=== PATIENT | female | born 1995 | race Caucasian/White ===

== ENCOUNTER 2018-04-07 20:07 | Inpatient (IN) | payer BC ==
[2018-04-07] MEDS: LACTATED RINGER'S 1,000 ML IV (21:28)
[2018-04-07] MEDS ORDERED: MISOPROSTOL 200 MCG TAB PR (21:30)
[2018-04-07] MEDS ORDERED: OXYTOCIN 30 UNITS/LR 500 ML IV ×3 (21:30→23:00)
[2018-04-07] MEDS ORDERED: IBUPROFEN 600 MG TAB PO (21:30)
[2018-04-07] MEDS ORDERED: LIDOCAINE 1% (MPF) 30 ML INJ INJ (21:30)
[2018-04-07] MEDS ORDERED: CARBOPROST 250 MCG INJ IM (21:30)
[2018-04-07] MEDS ORDERED: BUTORPHANOL 2 MG INJ IV (21:30)
[2018-04-07 22:14] LABS: ADD MAN DIFF? NO
[2018-04-07 22:16] LABS: WHITE BLOOD COUNT 7.6 10^3/ul (4.8-10.8)
[2018-04-07 22:16] LABS: BASOPHILS % 0.3 % (0.0-2.0); EOSINOPHILS # 0.3 10^3/ul (0.0-0.5); EOSINOPHILS % 4.1 % (0.0-7.0); HEMATOCRIT 36.6 % (37.0-47.0); HEMOGLOBIN 12.1 g/dl (12.0-16.0); LYMPHOCYTES % 26.3 % (15.0-51.0); MEAN CORPUSCULAR HEMOGLOBIN 28.9 pg (29.0-33.0); MEAN CORPUSCULAR HGB CONC 33.1 g/dl (32.0-37.0); MEAN CORPUSCULAR VOLUME 87.6 fl (82.0-101.0); MEAN PLATELET VOLUME 9.3 fl (7.4-10.4); MONOCYTE # 0.6 10^3/ul (0.3-0.9); MONOCYTES % 7.3 % (0.0-11.0); NEUTROPHIL # 4.7 10^3/ul (1.6-7.5); NEUTROPHILS % 61.6 % (39.0-77.0); PLATELET COUNT 275 10^3/UL (140-415); RED BLOOD COUNT 4.18 10^6/ul (4.20-5.40)
[2018-04-07 22:35] LABS: PARTIAL THROMBOPLASTIN TIME 26.3 Sec (23.0-35.0)
[2018-04-07 22:39] LABS: INR 0.93; PROTIME 12.6 Sec (11.9-14.9)
[2018-04-07] MEDS ORDERED: LIDOCAINE 0.5% (SDV) 50 ML INJ INFIL (23:00)
[2018-04-07] MEDS: MISOPROSTOL 50 MCG CAPSULE PO (23:13)
[2018-04-08] MEDS: LACTATED RINGER'S 1,000 ML IV ×3 (05:01→11:26)
[2018-04-08] MEDS ORDERED: TRIMETHOBENZAMIDE 100 MG/ML VIAL IM (11:00)
[2018-04-08] MEDS ORDERED: DIPHENHYDRAMINE 50 MG INJ IV (11:00)
[2018-04-08] MEDS ORDERED: ONDANSETRON 4 MG INJ IV ×2 (11:00→19:00)
[2018-04-08] MEDS ORDERED: NALOXONE (0.4 MG/ML) INJ IV (11:00)
[2018-04-08] MEDS ORDERED: FENTAnyl 2MCG/ML-ROPIV 0.2% 100 ML BAG EPI (11:00)
[2018-04-08] MEDS: OXYTOCIN 30 UNITS/LR 500 ML IV ×3 (12:49→20:33)
[2018-04-08 14:55] LABS: HEPATITIS B SURFACE ANTIGEN NEGATIVE (NEGATIVE)
[2018-04-08] MEDS: METHYLERGONOVINE 0.2 MG INJ IM (16:57)
[2018-04-08] MEDS: MINERAL OIL LIGHT 10 ML VIAL TOP (19:00)
[2018-04-08] MEDS: LIDOCAINE 0.5% (SDV) 50 ML INJ INFIL (19:00)
[2018-04-08] MEDS ORDERED: HYDROCODONE/APAP (5/325) TAB PO ×2 (19:00)
[2018-04-08] MEDS ORDERED: OXYCODONE/ASPIRIN (4.88/325) TAB PO ×2 (19:00)
[2018-04-08] MEDS ORDERED: ACETAMINOPHEN 325 MG TAB PO (19:00)
[2018-04-08] MEDS: BENZOCAINE 20% 56 ML SPRAY TOP (20:34)
[2018-04-08] MEDS: LANOLIN 7 GM TUBE TOP (20:34)
[2018-04-08] MEDS: WITCH HAZEL/GLYCERIN PAD PR (20:34)
[2018-04-08] MEDS: SENNA/DOCUSATE NA (8.6MG/50MG) TAB PO (20:34)
[2018-04-08 22:39] LABS: RAPID PLASMA REAGIN NONREACTIVE (NR)
[2018-04-08] MEDS: IBUPROFEN 600 MG TAB PO (23:35)
[2018-04-09 05:07] LABS: ADD MAN DIFF? NO
[2018-04-09 05:19] LABS: WHITE BLOOD COUNT 9.3 10^3/ul (4.8-10.8)
[2018-04-09 05:19] LABS: BASOPHILS % 0.3 % (0.0-2.0); EOSINOPHILS # 0.5 10^3/ul (0.0-0.5); EOSINOPHILS % 4.9 % (0.0-7.0); HEMATOCRIT 35.1 % (37.0-47.0); HEMOGLOBIN 11.6 g/dl (12.0-16.0); LYMPHOCYTES # 1.7 10^3/ul (0.8-2.9); MEAN CORPUSCULAR HEMOGLOBIN 29.1 pg (29.0-33.0); MEAN CORPUSCULAR VOLUME 88.2 fl (82.0-101.0); MEAN PLATELET VOLUME 9.3 fl (7.4-10.4); MONOCYTE # 0.8 10^3/ul (0.3-0.9); MONOCYTES % 8.5 % (0.0-11.0); NEUTROPHIL # 6.3 10^3/ul (1.6-7.5); PLATELET COUNT 228 10^3/UL (140-415); RED BLOOD COUNT 3.98 10^6/ul (4.20-5.40); RED CELL DISTRIBUTION WIDTH 13.7 % (11.5-14.5)
[2018-04-09] MEDS: IBUPROFEN 600 MG TAB PO ×4 (06:13→23:33)
[2018-04-09] MEDS: SENNA/DOCUSATE NA (8.6MG/50MG) TAB PO ×2 (08:57→20:50)
[2018-04-10] MEDS: IBUPROFEN 600 MG TAB PO ×2 (05:46→11:34)
[2018-04-10] MEDS: MEASLES,MUMPS,RUBELLA VACCINE INJ SC* (07:43)
[2018-04-10] MEDS: SENNA/DOCUSATE NA (8.6MG/50MG) TAB PO (09:00)
== END 2018-04-10 14:49 | disposition home or self-care (01) | DRG 807 ==
LOC: L-D 20:07 → MS1 04-08 18:50 → L-D 20:54
PROVIDERS: Obstetrics & Gynecology
PROC: 10E0XZZ Delivery of Products of Conception, External Approach (ICD-10-PCS; principal; 2018-04-08)
PROC: 0HQ9XZZ Repair Perineum Skin, External Approach (ICD-10-PCS; 2018-04-08)
DX: O70.9 Perineal laceration during delivery, unspecified (principal); Z37.0 Single live birth; Z3A.38 38 weeks gestation of pregnancy
CPT/HCPCS: 62319; 85025; 85610; 85730; 86592; 86850; 86900; 86901; 87340